=== PATIENT | female | born 2000 | race Asian ===

== ENCOUNTER 2019-02-27 08:28 | Day surgery (SDC) | payer OTHER ==
[2019-02-26 11:28] VITALS: BMI 20.2
[2019-02-27] MEDS ORDERED: Fentanyl 100 MCG/2 ML VIAL ONE ×2 (09:20→10:23)
[2019-02-27] MEDS ORDERED: Midazolam HCl 2 mg/2 ml Vial ONE (09:20)
[2019-02-27] MEDS ORDERED: Bupivacaine 0.25% HCL 30 ML VIAL ONE (09:36)
[2019-02-27] MEDS ORDERED: Bupivacaine PF 0.5% 30 ML VIAL ONE (09:36)
[2019-02-27] MEDS ORDERED: Bupivacaine HCl 0.5%/Epinephrine 1:200,000/PF 30 ml Vial ONE (10:03)
[2019-02-27] MEDS ORDERED: Ondansetron PF 4 MG/2 ML Vial ONE (10:03)
[2019-02-27] MEDS ORDERED: Lidocaine 2% w/Epinephrine 1:200K 20 ML VIAL ONE (10:03)
[2019-02-27] MEDS ORDERED: Ketorolac Tromethamine 30 MG/ML VIAL ONE (10:03)
[2019-02-27] MEDS ORDERED: PROPOFOL 200 MG/20 ML VIAL ONE (10:03)
[2019-02-27] MEDS ORDERED: Dexamethasone 20 MG/5 ML VIAL ONE (10:03)
--- NOTE | 2019-02-27 18:24 | OP ---
DATE OF PROCEDURE: 02/27/2019 PREOPERATIVE DIAGNOSIS: Grade 4 lesion patella with loose body. POSTOPERATIVE DIAGNOSIS: Grade 4 lesion patella with loose body. PROCEDURES PERFORMED: 1. Left knee arthroscopy with debridement and shaving of unstable chondral flaps of the patella. 2. Removal of cartilaginous loose body. CRIMINAL PROFILER: None. ESTIMATED BLOOD LOSS: Minimal. COMPLICATIONS: None. She had general with a local knee block. DISPOSITION: She went to recovery room in stable condition. INDICATIONS: A 18-year-old female, who injured her knee playing volleyball, was found to have a grade 4 lesion and probable loose body. At this time, she opted to have surgery. DESCRIPTION OF PROCEDURE: After all appropriate consent forms were explained and signed, she was taken back to the operative room and at this time was given a general anesthetic. Once the level of anesthesia was appropriate, a tourniquet was placed in the left thigh. Leg was placed in arthroscopic leg allen. The limb was then prepped and draped in standard surgical fashion. Limb was then exsanguinated and tourniquet was taken to 250 mmHg. Inferolateral portal was established. Scope was placed into the knee joint. A needle localization technique was then used to make a medial working portal. Diagnostic arthroscopy commenced in the notch. The ACL and PCL were probed, found to be intact. The medial compartment was found to be completely intact. The lateral compartment found the scuffing on the superior aspect of the lateral meniscus on its insertion posteriorly. This was smoothed with a shaver. The gutters were swept through the medial compartment. The lateral gutter was clean. We found a piece of cartilage in the popliteal fossa/hiatus and we switched the camera to the medial portal, put the shaver through the lateral portal, turned a shaver on, we were able to suck this piece of cartilage up and out of the hiatus and into the front of the knee, where it was then eaten with the chondrotome. Once this was done, we went to the patellofemoral joint and there was a grade 4 lesion on the patella with some unstable chondral flaps. These were gently debrided back to a stable base and we then went through the knee one more time looking for any more loose bodies or any other abnormality, there were none. We went ahead and removed the scope, drained the knee, and closed these portal with a simple nylon stitch. Bulky sterile dressing was applied and the tourniquet was let down. Toes pinked up nicely. The patient was awakened. She was taken to recovery room in stable condition. All counts were correct at the end of the case. She did receive preoperative IV antibiotics. Job ID: [id number]
== END 2019-02-27 14:40 | disposition home or self-care (01) ==
LOC: SDC 08:28
PROVIDERS: ATTEND Orthopaedic Surgery
DX: M23.42 Loose body in knee, left knee (principal); M22.8X2 Other disorders of patella, left knee; M17.32 Unilateral post-traumatic osteoarthritis, left knee; X58.XXXA Exposure to other specified factors, initial encounter; Y93.68 Activity, volleyball (beach) (court)
CPT/HCPCS: J0670; J0690; J1100; J1885; J2250; J2405; J2704; J3010; S0020